=== PATIENT | male | born 1950 | race Caucasian/White ===

== ENCOUNTER 2022-03-22 11:59 | Outpatient (RCR) | payer BC, MEDICARE ==
[~2022-03-22 11:59] MED LIST: ALPRAZOLAM0.25 MG PO; CITALOPRAM HBR20 MG PO; ETODOLAC400 MG PO; FLOMAX0.4 MG PO; KEFLEX500 MG PO; LISINOPRIL5 MG PO; METHOCARBAMOL750 MG PO; TESTOSTERONE PO; TYLENOL # 31 EA PO; VIAGRA25 MG PO; VITAMIN D PO
== END 2022-04-15 ==
LOC: OT 11:59
PROVIDERS: ATTEND Plastic Surgery
DX: M18.12 Unilateral primary osteoarthritis of first carpometacarpal joint, left hand (principal); M79.642 Pain in left hand

== ENCOUNTER 2022-10-19 17:15 | Inpatient (IN) | payer BC, MEDICARE ==
[~2022-10-19] VITALS: Ht 177.8 cm; Wt 84.4 kg
[2022-10-19] MEDS ORDERED: SODIUM CHLORIDE 0.9% 1000ML 1,000 ML IV STA (17:42)
[2022-10-19 18:08] LABS: BASOPHILS # (AUTO) 0.1 (0.0-0.1); BASOPHILS % 0.6 % (0.0-1.0); EOSINOPHILS # (AUTO) 0.3 (0.0-0.4); EOSINOPHILS % 2.8 % (0.0-6.0); HEMOGLOBIN 15.9 g/dL (14.0-18.0); LYMPHOCYTES # (AUTO) 3.3 (1.0-3.2); LYMPHOCYTES % 35.5 % (18.0-39.1); MEAN CORPUSCULAR HEMOGLOBIN 32.4 pg (28-32); MEAN CORPUSCULAR HGB CONC 35.3 g/dL (31-35); MEAN CORPUSCULAR VOLUME 91.6 fL (81-99); MONOCYTES # (AUTO) 0.8 (0.2-0.8); MONOCYTES % 8.6 % (4.4-11.3); NEUTROPHILS # (AUTO) 4.9 (2.1-6.9); NEUTROPHILS % 52.2 % (38.7-80.0); PLATELET COUNT 278 x10e3/uL (140-360); RED BLOOD COUNT 4.91 x10e6/uL (4.3-5.7); RED CELL DISTRIBUTION WIDTH 12.6 % (11.7-14.4)
[2022-10-19 18:17] LABS: INR 0.94; PROTHROMBIN TIME 13.1 seconds (11.9-14.5)
[2022-10-19 18:18] LABS: PARTIAL THROMBOPLASTIN TIME 28.2 seconds (23.8-35.5)
[2022-10-19 18:27] LABS: ALANINE AMINOTRANSFERASE 17 IU/L (0-55); ALBUMIN 3.9 g/dL (3.5-5.0); ALBUMIN/GLOBULIN RATIO 1.1 (0.8-2.0); ALKALINE PHOSPHATASE 66 IU/L (40-150); ANION GAP 16.9 mmol/L (8-16); BLOOD UREA NITROGEN 11 mg/dL (7-26); BUN/CREATININE RATIO 11 (6-25); CALCIUM 9.2 mg/dL (8.4-10.2); CARBON DIOXIDE 24 mmol/L (22-29); CHLORIDE 106 mmol/L (98-107); CREATINE KINASE 85 IU/L (30-200); CREATININE, SERUM 1.03 mg/dL (0.72-1.25); GLUCOSE 106 mg/dL (74-118); POTASSIUM 3.9 mmol/L (3.5-5.1); SODIUM 143 mmol/L (136-145)
[2022-10-19] MEDS ORDERED: IOPAMIDOL 370 MG/ML 100 ML INFUS..BTL INJ ONE (19:51)
[2022-10-19] MEDS ORDERED: SODIUM CHLORIDE 0.9% 100 ML ONE (19:51)
[2022-10-19] MEDS ORDERED: ONDANSETRON HCL INJ 2MG/ML 2ML 2 MG/ML VIAL IV PRN (20:15)
[2022-10-19] MEDS ORDERED: SODIUM CHLORIDE FLUSH 10 ML SYR INJ PRN (20:15)
[2022-10-19] MEDS ORDERED: MELOXICAM7.5 MG PO (20:27)
[2022-10-19] MEDS ORDERED: LEVOTHYROXINE50 MCG PO (20:28)
[2022-10-19] MEDS ORDERED: AMITRIPTYLINE H25 MG PO (20:29)
[2022-10-19 22:45] VITALS: BP 179/90
[2022-10-19 23:05] VITALS: BP 179/90
[2022-10-20] MEDS ORDERED: ALPRAZOLAM 0.25 MG TAB PO PRN (04:00)
[2022-10-20 04:54] LABS: BASOPHILS % 0.2 % (0.0-1.0); EOSINOPHILS # (AUTO) 0.2 (0.0-0.4); EOSINOPHILS % 1.8 % (0.0-6.0); HEMATOCRIT 40.4 % (38.2-49.6); HEMOGLOBIN 14.3 g/dL (14.0-18.0); LYMPHOCYTES # (AUTO) 2.7 (1.0-3.2); LYMPHOCYTES % 23.7 % (18.0-39.1); MEAN CORPUSCULAR HEMOGLOBIN 32.6 pg (28-32); MEAN CORPUSCULAR HGB CONC 35.4 g/dL (31-35); MEAN CORPUSCULAR VOLUME 92.2 fL (81-99); MONOCYTES # (AUTO) 0.6 (0.2-0.8); MONOCYTES % 5.3 % (4.4-11.3); NEUTROPHILS # (AUTO) 7.8 (2.1-6.9); NEUTROPHILS % 68.6 % (38.7-80.0); PLATELET COUNT 242 x10e3/uL (140-360); RED BLOOD COUNT 4.38 x10e6/uL (4.3-5.7); RED CELL DISTRIBUTION WIDTH 12.7 % (11.7-14.4)
[2022-10-20 05:16] VITALS: BP 121/67
[2022-10-20 05:27] LABS: ALBUMIN 3.4 g/dL (3.5-5.0); ALBUMIN/GLOBULIN RATIO 1.1 (0.8-2.0); CALCIUM 8.9 mg/dL (8.4-10.2); CREATININE, SERUM 1.13 mg/dL (0.72-1.25)
[2022-10-20] MEDS: LEVOTHYROXINE SODIUM 100 MCG TAB PO SCH (05:28)
[2022-10-20 08:00] VITALS: BP 150/87
[2022-10-20 08:45] VITALS: BP 150/87
[2022-10-20] MEDS: LISINOPRIL 10 MG TAB PO SCH (09:00)
[2022-10-20] MEDS: TAMSULOSIN HCL 0.4 MG CAP PO SCH (09:00)
[2022-10-20] MEDS: AMITRIPTYLINE HCL 25 MG TAB PO SCH (09:24)
[2022-10-20] MEDS: MELOXICAM 7.5 MG TAB PO SCH (09:24)
[2022-10-20] MEDS: ASPIRIN 325 MG TAB EC PO SCH (09:25)
[2022-10-20 16:00] VITALS: BP 116/74
[2022-10-20 20:30] VITALS: BP 134/82
[2022-10-21] MEDS: LEVOTHYROXINE SODIUM 100 MCG TAB PO SCH (05:27)
[2022-10-21 05:32] VITALS: BP 123/56
[2022-10-21 08:10] VITALS: BP 139/64
[2022-10-21 08:52] VITALS: BP 139/64
[2022-10-21] MEDS: ASPIRIN 325 MG TAB EC PO SCH (09:07)
[2022-10-21] MEDS: LISINOPRIL 10 MG TAB PO SCH (09:08)
[2022-10-21] MEDS: MELOXICAM 7.5 MG TAB PO SCH (09:09)
[2022-10-21] MEDS: AMITRIPTYLINE HCL 25 MG TAB PO SCH (09:09)
[2022-10-21] MEDS: TAMSULOSIN HCL 0.4 MG CAP PO SCH (09:10)
[2022-10-21 11:39] VITALS: BP 135/84
[2022-10-21 16:58] VITALS: BP 143/84
== END 2022-10-21 18:00 | disposition home or self-care (01) | DRG 552 ==
LOC: ER 17:20 → ERHOLD 20:09 → MED/SURG 23:27 → OBSVTOIN 10-21 09:18
PROVIDERS: ADMIT Internal Medicine; ATTEND Internal Medicine
DX: M48.02 Spinal stenosis, cervical region (principal); I10 Essential (primary) hypertension; E03.9 Hypothyroidism, unspecified; F41.9 Anxiety disorder, unspecified; N40.0 Benign prostatic hyperplasia without lower urinary tract symptoms; E78.5 Hyperlipidemia, unspecified
CPT/HCPCS: 36415; 70496; 70498; 70551; 71045; 72141; 80053; 82550; 82553; 84484; 85025; 85610; 85730; 93005; 93306; 94799; 95812; 99284; G0378; J7030; J7050; Q9967

== ENCOUNTER → 2024-07-31 | Day surgery (SDC) | payer MEDICARE ==
[2024-07-24 13:53] LABS: BASOPHILS # (AUTO) 0.1 (0.0-0.1); BASOPHILS % 0.6 % (0.0-1.0); EOSINOPHILS # (AUTO) 0.2 (0.0-0.4); EOSINOPHILS % 1.9 % (0.0-6.0); HEMATOCRIT 44.9 % (38.2-49.6); HEMOGLOBIN 15.7 g/dL (14.0-18.0); LYMPHOCYTES # (AUTO) 2.7 (1.0-3.2); LYMPHOCYTES % 29.6 % (18.0-39.1); MEAN CORPUSCULAR HEMOGLOBIN 33.2 pg (28-32); MEAN CORPUSCULAR VOLUME 94.9 fL (81-99); MONOCYTES # (AUTO) 0.9 (0.2-0.8); MONOCYTES % 10.3 % (4.4-11.3); NEUTROPHILS # (AUTO) 5.2 (2.1-6.9); NEUTROPHILS % 57.4 % (38.7-80.0); PLATELET COUNT 292 x10e3/uL (140-360); RED BLOOD COUNT 4.73 x10e6/uL (4.3-5.7); RED CELL DISTRIBUTION WIDTH 12.8 % (11.7-14.4); WHITE BLOOD COUNT 9.03 x10e3/uL (4.8-10.8)
[2024-07-24 14:12] LABS: ANION GAP 14.4 mmol/L (8-16); CALCIUM 10.1 mg/dL (8.4-10.2); CREATININE, SERUM 1.24 mg/dL (0.72-1.25); POTASSIUM 4.4 mmol/L (3.5-5.1)
[~2024-07-31] MED LIST changes: +ACETAMINOPHEN 1000 MG/100 ML 100 ML IV ONE; +AMITRIPTYLINE H25 MG PO; +FENTANYL CITRATE/PF 100MCG/2 ML INJ ONE; +FINASTERIDE5 MG PO; +GLIMEPIRIDE2 MG PO; +LEVOTHYROXINE50 MCG PO; +LIDOCAINE HCL 2% LOCAL INJ 5 ML SDV VIAL INJ ONE; +MELOXICAM7.5 MG PO; +MIDAZOLAM HCL 2 MG/2 ML VIAL ONE; +MYRBETRIQ25 MG PO; +NEURONTIN300 MG PO; +ONDANSETRON HCL INJ 2MG/ML 2ML 2 MG/ML VIAL ONE; +PROPOFOL IV EMULSION 10 MG/ML 20 ML VIAL ONE; +SEVOFLURANE INHAL SOLN 250 ML PEN BTL ONE; +SODIUM CHLORIDE 0.9% 250ML 250 ML ONE; +VITAMIN D31250 MCG PO
[2024-07-31] MEDS: LACTATED RINGER'S 1,000 ML ONE (07:53)
[2024-07-31] MEDS: Vancomycin IV 1 GM VIAL ONE (07:53)
[2024-07-31 10:58] VITALS: TEMP 97.8
[2024-07-31 12:17] VITALS: BP 145/88; PULSE 72; RESP 18; O2SAT 97
== END | disposition home or self-care (01) ==
LOC: OR 06:50
PROVIDERS: ATTEND Urology
DX: N47.1 Phimosis (principal); L72.0 Epidermal cyst; N41.1 Chronic prostatitis; N32.89 Other specified disorders of bladder; N40.1 Benign prostatic hyperplasia with lower urinary tract symptoms; N13.8 Other obstructive and reflux uropathy; N35.819 Other urethral stricture, male, unspecified site; Z96.0 Presence of urogenital implants; I10 Essential (primary) hypertension; E03.9 Hypothyroidism, unspecified; F41.9 Anxiety disorder, unspecified; Z88.6 Allergy status to analgesic agent; Z01.810 Encounter for preprocedural cardiovascular examination; Z01.812 Encounter for preprocedural laboratory examination; Z01.818 Encounter for other preprocedural examination; Z79.1 Long term (current) use of non-steroidal anti-inflammatories (NSAID); Z79.84 Long term (current) use of oral hypoglycemic drugs; Z79.899 Other long term (current) drug therapy
CPT/HCPCS: 11426; 36415; 52281; 54161; 71046; 74420; 80048; 85025; 88304; 93005; C1758; J0131; J2003; J2704; J3010; J3370; J7050; J7121; J2250; J2405